=== PATIENT | female | born 1950 | race Caucasian/White ===

== ENCOUNTER 2017-07-21 20:46 | Emergency (ER) | payer MEDICARE ==
[~2017-07-21] VITALS: Ht 157.5 cm; Wt 65.0 kg
[~2017-07-21 20:46] MED LIST: AMLODIPINE5 MG PO; LOSARTAN POT50 MG PO; METOPROLOL SUCC50 MG PO; NORCO1 TA1 PO; PREVACID; ZETIA10 MG PO
[2017-07-21 21:34] LABS: HEMOGLOBIN 14.1 g/dl (12.0-16.0); IMMATURE GRANULOCYTES 0.6 % (0.0-1.0); MEAN CELL VOLUME 85.7 fL CALC (80.0-100.0); MEAN CORPUSCULAR HGB 28.8 pG CALC (26.0-32.0); MEAN CORPUSCULAR HGB CONC 33.6 g/L CALC (32.0-36.0); NEUT# 9.41 thou/uL (2.00-7.15); RED BLOOD COUNT 4.9 mill/uL (4.20-5.60); RED CELL DISTRI WIDTH 12.2 % (11.5-15.5)
[2017-07-21 21:46] LABS: ALBUMIN 4.6 g/dL (3.2-5.0); ALKALINE PHOSPHATASE 74 u/l (38-126); AMYLASE 95 u/l (30-110); ANION GAP 16 (6-22 (CALC)); BILIRUBIN, TOTAL 0.5 mg/dL (0.0-1.4); BUN 14 mg/dL (8-23); BUN/CREATININE RATIO 17 (12-20 (CALC)); CALCIUM 9.5 mg/dL (8.4-10.2); CARBON DIOXIDE 27 mmol/l (22-30); CHLORIDE 102 mmol/l (95-108); CREATININE 0.8 mg/dL (0.5-1.0); GFR > 60 ML/MIN (>=60 (CALC)); GFR FOR AFR.AMER. > 60 ML/MIN (>=60 (CALC)); GLUCOSE 118 mg/dL (82-115); LIPASE 131 u/l (23-300); POTASSIUM 3.7 mmol/l (3.5-5.1); SGOT/AST 21 u/l (9-36); SGPT/ALT 28 u/l (11-66); SODIUM 142 mmol/l (137-146); TOTAL PROTEIN 7.2 g/dL (6.3-8.2)
[2017-07-21] MEDS ORDERED: ZOFRAN ODT4 MG PO (23:06)
[2017-07-21] MEDS ORDERED: CIPROFLOXACN500 MG PO (23:06)
[2017-07-21] MEDS ORDERED: LORTAB 5/3255 MG PO (23:06)
[2017-07-21] MEDS ORDERED: TAMSULOSIN0.4 MG PO (23:06)
[2017-07-21 23:48] LABS: URINE BILIRUBIN - DIPSTICK NEGATIVE (NEGATIVE); URINE BLOOD DIPSTICK LARGE (NEGATIVE); URINE COLOR YELLOW; URINE GLUCOSE - DIPSTICK NEGATIVE (NEGATIVE); URINE KETONE NEGATIVE (NEGATIVE); URINE LEUK ESTERASE NEGATIVE (NEGATIVE); URINE NITRITE - DIPSTICK NEGATIVE (Negative); URINE PROTEIN - DIPSTICK NEGATIVE (NEG-TRACE); URINE UROBILINOGEN - DIPSTICK 0.2 E.U./dL (0.2)
[2017-07-21 23:49] LABS: URINE CLARITY CLEAR
[2017-07-21 23:56] LABS: URINE SQUAMOUS EPITHELIAL CELL FEW EPI/hpf (0-FEW)
[2017-07-22 00:31] VITALS: BP 120/63
== END 2017-07-22 00:32 | disposition home or self-care (01) ==
LOC: ED 20:46
PROVIDERS: Emergency Medicine
DX: N13.2 Hydronephrosis with renal and ureteral calculous obstruction (principal); Z87.442 Personal history of urinary calculi; I10 Essential (primary) hypertension; R11.2 Nausea with vomiting, unspecified; R10.9 Unspecified abdominal pain; R10.31 Right lower quadrant pain

== ENCOUNTER 2017-07-24 12:19 | Emergency (ER) | payer MEDICARE ==
[~2017-07-24] VITALS: Ht 157.5 cm; Wt 65.0 kg
[~2017-07-24 12:19] MED LIST changes: +CIPROFLOXACN500 MG PO; +LORTAB 5/3255 MG PO; +TAMSULOSIN0.4 MG PO; +ZOFRAN ODT4 MG PO
[2017-07-24] MEDS ORDERED: HYDROCORT0.51 EX (13:02)
[2017-07-24 13:10] VITALS: BP 137/69
== END 2017-07-24 13:13 | disposition home or self-care (01) ==
LOC: ED 12:19
DX: T78.49XA Other allergy, initial encounter (principal); Y92.230 Patient room in hospital as the place of occurrence of the external cause; L29.9 Pruritus, unspecified; L50.0 Allergic urticaria

== ENCOUNTER 2019-01-28 10:46 | Emergency (ER) | payer MEDICARE ==
[~2019-01-28] VITALS: Ht 157.5 cm; Wt 68.0 kg
[~2019-01-28 10:46] MED LIST changes: +HYDROCORT0.51 EX
[2019-01-28] MEDS ORDERED: ATENOLOL25 MG PO (10:57)
[2019-01-28 11:37] LABS: HEMATOCRIT 42.4 % (37.0-47.0); HEMOGLOBIN 14.3 g/dl (12.0-16.0); IMMATURE GRANULOCYTES 0.4 % (0.0-5.0); MEAN CELL VOLUME 84.3 fL CALC (80.0-100.0); MEAN CORPUSCULAR HGB 28.4 pG CALC (26.0-32.0); MEAN CORPUSCULAR HGB CONC 33.7 g/L CALC (32.0-36.0); NEUT# 3.38 thou/uL (2.00-7.15); RED BLOOD COUNT 5.03 mill/uL (4.20-5.60); RED CELL DISTRI WIDTH 12.3 % (11.5-15.5)
[2019-01-28 12:16] LABS: ALBUMIN 4.6 g/dL (3.2-5.0); ALKALINE PHOSPHATASE 79 u/l (38-126); AMYLASE 86 u/l (30-110); ANION GAP 14 (6-22 (CALC)); BUN 16 mg/dL (8-23); BUN/CREATININE RATIO 24 (12-20 (CALC)); CARBON DIOXIDE 26 mmol/l (22-30); CHLORIDE 106 mmol/l (95-108); CREATININE 0.7 mg/dL (0.5-1.0); GFR > 60 ML/MIN (>=60 (CALC)); GFR FOR AFR.AMER. > 60 ML/MIN (>=60 (CALC)); LIPASE 109 u/l (23-300); POTASSIUM 4.2 mmol/l (3.5-5.1); SGOT/AST 26 u/l (9-36); SODIUM 141 mmol/l (137-146); TOTAL PROTEIN 7.4 g/dL (6.3-8.2)
[2019-01-28 12:17] LABS: BILIRUBIN, TOTAL 0.5 mg/dL (0.0-1.4)
[2019-01-28 13:18] LABS: URINE BILIRUBIN - DIPSTICK NEGATIVE (NEGATIVE); URINE BLOOD DIPSTICK LARGE (NEGATIVE); URINE COLOR YELLOW; URINE GLUCOSE - DIPSTICK NEGATIVE (NEGATIVE); URINE KETONE NEGATIVE (NEGATIVE); URINE NITRITE - DIPSTICK NEGATIVE (Negative); URINE PH 7.5 (4.5-8.0); URINE PROTEIN - DIPSTICK NEGATIVE (NEG-TRACE); URINE UROBILINOGEN - DIPSTICK 0.2 E.U./dL (0.2)
[2019-01-28 13:24] LABS: URINE LEUK ESTERASE SMALL (NEGATIVE)
[2019-01-28 13:41] LABS: URINE RBC TNTC RBC/hpf (0-5); URINE SQUAMOUS EPITHELIAL CELL FEW EPI/hpf (0-FEW)
[2019-01-28] MEDS ORDERED: TAMSULOSIN0.4 MG PO (14:27)
[2019-01-28] MEDS ORDERED: KEFLEX500 M1 PO (14:27)
[2019-01-28] MEDS ORDERED: LORTAB 5/3255 MG PO (14:27)
[2019-01-28] MEDS ORDERED: ZOFRAN4 MG/TAB PO (14:27)
[2019-01-28 14:42] VITALS: BP 137/73
== END 2019-01-28 14:57 | disposition home or self-care (01) ==
LOC: ED 10:46
DX: N13.2 Hydronephrosis with renal and ureteral calculous obstruction (principal); I10 Essential (primary) hypertension

== ENCOUNTER 2021-03-31 06:46 | Day surgery (SDC) | payer MEDICARE, MEDICAID ==
[~2021-03-31] VITALS: Ht 154.9 cm; Wt 68.0 kg
[~2021-03-31 06:46] MED LIST changes: +ATENOLOL25 MG PO; +KEFLEX500 M1 PO; +MAGNESIUM500 M2 PO; +MYRBETRIQ50 MG PO; +SUPER BIOTIN5000 MC1 PO; +VITAMIN C500 M4 PO; +ZOFRAN4 MG/TAB PO
[2021-03-31 08:56] VITALS: BP 165/79
== END 2021-03-31 09:25 | disposition home or self-care (01) ==
LOC: ENDO 06:46 → ORM 08:00 → ENDO 08:00 → ORM 09:30
PROVIDERS: ATTEND Surgery
PROC: 0DJD8ZZ Inspection of Lower Intestinal Tract, Via Natural or Artificial Opening Endoscopic (ICD-10-PCS; principal; 2021-03-31)
PROC: 0DJ08ZZ Inspection of Upper Intestinal Tract, Via Natural or Artificial Opening Endoscopic (ICD-10-PCS; 2021-03-31)
DX: K57.30 Diverticulosis of large intestine without perforation or abscess without bleeding (principal); K64.8 Other hemorrhoids; K29.80 Duodenitis without bleeding; K44.9 Diaphragmatic hernia without obstruction or gangrene; I10 Essential (primary) hypertension; E78.5 Hyperlipidemia, unspecified; D17.1 Benign lipomatous neoplasm of skin and subcutaneous tissue of trunk; R22.31 Localized swelling, mass and lump, right upper limb

== ENCOUNTER 2022-01-22 10:30 | Day surgery (SDC) | payer MEDICARE, MEDICAID ==
[~2022-01-22] VITALS: Ht 154.9 cm; Wt 65.8 kg
[~2022-01-22 10:30] MED LIST changes: +CRESTOR5 M1; +LIPITOR10 M1 PO; +SOLIFENACIN SUCC5 MG
[2022-01-22 14:16] VITALS: BP 164/80
== END 2022-01-22 14:41 | disposition home or self-care (01) ==
LOC: ORM 10:30
PROVIDERS: ATTEND Urology
PROC: 0TF3XZZ Fragmentation in Right Kidney Pelvis, External Approach (ICD-10-PCS; principal; 2022-01-22)
PROC: 0T768DZ Dilation of Right Ureter with Intraluminal Device, Via Natural or Artificial Opening Endoscopic (ICD-10-PCS; 2022-01-22)
DX: N20.0 Calculus of kidney (principal); N32.81 Overactive bladder; I10 Essential (primary) hypertension; E78.5 Hyperlipidemia, unspecified; Z87.440 Personal history of urinary (tract) infections; Z87.442 Personal history of urinary calculi
CPT/HCPCS: J0131; J1956; Q9967

== ENCOUNTER 2023-04-28 12:28 | Observation (INO) | payer MEDICARE, MEDICAID ==
[~2023-04-28] VITALS: Ht 154.9 cm; Wt 71.2 kg
[2023-04-28] VITALS (11 sets, daily range): BP systolic 127–170; BP diastolic 59–81
--- NOTE | 2023-04-28 12:28 | NUR ---
PT WHEELED TO ROOM 15. FEELING GENREALIZED WEAKNESS AND FATIGUE.PT WAS ABLE TO STAND AND PIVOT TO THE BEDPT IS ALERT AND OX4
[2023-04-28 13:04] LABS: BASO% 0.4 % (0-3); EOS% 0.1 % (0-8); HEMATOCRIT 40.1 % (37.0-47.0); HEMOGLOBIN 13.7 g/dl (12.0-16.0); IMMATURE GRANULOCYTES 0.1 % (0.0-5.0); LYMPH% 13.6 % (15-41); MEAN CELL VOLUME 84.8 fL CALC (80.0-100.0); MEAN CORPUSCULAR HGB CONC 34.2 g/dL CAL (32.0-36.0); MONO% 9.1 % (2-13); NEUT# 5.67 thou/uL (2.00-7.15); NEUT% 76.7 % (42-76); RED BLOOD COUNT 4.73 mill/uL (4.20-5.60); RED CELL DISTRI WIDTH 12.1 % (11.5-15.5)
[2023-04-28 13:12] LABS: ALBUMIN 4.2 g/dL (3.2-5.0); ALKALINE PHOSPHATASE 88 u/l (38-126); BILIRUBIN, TOTAL 0.7 mg/dL (0.02-1.3); BUN 11 mg/dL (8-23); BUN/CREATININE RATIO 13 (12-20 (CALC)); CARBON DIOXIDE 26 mmol/l (22-30); CHLORIDE 97 mmol/l (95-108); CREATININE 0.9 mg/dL (0.5-1.0); GFR FOR AFR.AMER. > 60 ML/MIN (>=60 (CALC)); GFR OTHER RACES > 60 ML/MIN (>=60 (CALC)); POTASSIUM 4.1 mmol/l (3.5-5.1); TOTAL PROTEIN 7.3 g/dL (6.3-8.2)
[2023-04-28 13:25] LABS: ANION GAP 15 (6-22 (CALC)); SGOT/AST 45 u/l (9-36); SODIUM 134 mmol/l (137-146)
--- NOTE | 2023-04-28 13:30 | NUR ---
IN ROOM OBTAIN I/V, 18G LAC, VSS, MEDS ADMINISTERED PER ORDERS, FAMILY AT BEDSIDE, CALL LIGHT IN REACH. PT TAKEN TO CT/US.
[2023-04-28 14:52] LABS: URINE BILIRUBIN - DIPSTICK Negative (NEGATIVE); URINE BLOOD DIPSTICK Moderate (NEGATIVE); URINE COLOR Yellow; URINE GLUCOSE - DIPSTICK Negative (NEGATIVE); URINE KETONE Trace mg/dL (NEGATIVE); URINE LEUK ESTERASE Negative (NEGATIVE); URINE NITRITE - DIPSTICK Positive (Negative); URINE PROTEIN - DIPSTICK Negative (NEG-TRACE); URINE SPECIFIC GRAVITY <=1.005; URINE UROBILINOGEN - DIPSTICK 0.2 E.U./dL (0.2)
[2023-04-28 14:53] LABS: URINE BACTERIA MODERATE hpf
--- NOTE | 2023-04-28 15:00 | NUR ---
FAMILY MEMBER LEFT, VSS, CALL LIGHT IN REACH. NO COMPLAINTS AT THIS TIME.
--- NOTE | 2023-04-28 15:58 | NUR ---
REPORT CALLED TO ICU NURSE GISELA.
--- NOTE | 2023-04-28 16:10 | NUR ---
PT TO [facility] ROOM 260 VIA STRETCHER, MASK WORN, VSS, ALL BELONGINS SENT WITH PT, PT ON TELE # 1.
--- NOTE | 2023-04-28 17:05 | NUR ---
PT BROUGHT UP FROM ER VIA STR @5090 PT WAS ABLE TO TRANSFER SELF FROM STR INTO BED. PT IS COVID POSITIVE SO AIRBORN PRECAUTIONS PLACED AND PT EDUCATED ON THEM. PT IS ON RM AIR, A/OX3, SKIN IS INTACT. PT PLACED ON BRIEF PUT STATES THEY ARE CONTINENT BUT LEAKS OCCASIONALLY. EDUCATED PT ON PLAN OF CARE, MED SCHEDULE, DIET AND SAFETY PRECAUTIONS. IV SITE NOTED, APPEARS HEALTHY AND INTACT. PT BELONGINGS PLACED IN BAG AND PUT IN CLOSET IN RM. PT ON TELE MONITORING BOX #1. CALL LIGHT WITHIN REACH AND SAFETY PRECAUTIONS IN PLACE.
--- NOTE | 2023-04-28 21:18 | NUR ---
Pt requested Purewick.
[2023-04-29 00:03] VITALS: BP 165/74
--- NOTE | 2023-04-29 00:47 | NUR ---
PT REQUESTED COUGH MED AND LOZENGER WELL TYLENOL FOR COUGH/DISCOMFORT WITH GOOD EFECT. SLEEPING WELL. IV FLUIDS INFUSING ORDERED.
[2023-04-29 04:10] VITALS: BP 156/80
[2023-04-29 06:08] LABS: HEMATOCRIT 37.3 % (37.0-47.0); HEMOGLOBIN 12.7 g/dl (12.0-16.0); MEAN CELL VOLUME 86.3 fL CALC (80.0-100.0); MEAN CORPUSCULAR HGB 29.4 pG CALC (26.0-32.0); RED BLOOD COUNT 4.32 mill/uL (4.20-5.60); RED CELL DISTRI WIDTH 12.4 % (11.5-15.5)
[2023-04-29 06:29] LABS: ANION GAP 11 (6-22 (CALC)); BUN 8 mg/dL (8-23); BUN/CREATININE RATIO 12 (12-20 (CALC)); CALCULATED LDLCHOLESTEROL 115 mg/dL (62-129 (CALC)); CARBON DIOXIDE 26 mmol/l (22-30); CHLORIDE 104 mmol/l (95-108); CREATININE 0.7 mg/dL (0.5-1.0); GFR FOR AFR.AMER. > 60 ML/MIN (>=60 (CALC)); GFR OTHER RACES > 60 ML/MIN (>=60 (CALC)); HDL CHOLESTEROL 35 mg/dL (39.0-59.0); MAGNESIUM 1.9 mg/dL (1.6-2.3); POTASSIUM 3.6 mmol/l (3.5-5.1); SODIUM 137 mmol/l (137-146); TOTAL CHOLESTEROL 178 mg/dl (0-199); TOTAL TRIGLYCERIDES 135 mg/dl (0-149); VLDL CHOLESTROL 27 mg/dl (0-48 (CALC))
[2023-04-29 06:41] LABS: C-REACTIVE PROTEIN 14.9 mg/dL (0-0.9)
--- NOTE | 2023-04-29 07:00 | NUR ---
RECEIVED BEDSIDE REPORT FROM MYRON MAGALLON. PT RESTING IN BED WITH EYES CLOSED. ALL SAFETY MEASURES IN PLACE. VSS. NO NEEDS AT THIS TIME.
[2023-04-29 12:07] VITALS: BP 166/71
[2023-04-29 23:56] VITALS: BP 165/80
[2023-04-30] VITALS (7 sets, daily range): BP systolic 136–189; BP diastolic 56–85
--- NOTE | 2023-04-30 07:41 | NUR ---
RECEIVED BEDSIDE REPORT FROM MARY BISHOP. PT LYING IN BED WITH EYES CLOSED. ALL SAFETY MEASURES IN PLACE. VSS. NO NEEDS AT THIS TIME.
[2023-04-30] MEDS ORDERED: OMNICEF300 MG PO (18:04)
--- NOTE | 2023-04-30 21:46 | NUR ---
RECEIVED BEDSIDE SHIFT REPORT AT START OF SHIFT. PT IS BEING DISCHARGED TO HOME. ALL DISCHARGE INSTRUCTIONS DISCUSSED WITH PT WITH GOOD UNDERSTANDING.BROUGHT TO ED LOBBY VIA WC . SON IS BRINGING PT HOME.
== END 2023-04-30 20:00 | disposition home or self-care (01) ==
LOC: ED 12:28 → ED-I 13:04 → ED 13:04 → ED-I 15:20 → ED 15:33 → MS2 15:34 → ICU 15:34 → MS2 16:04
PROVIDERS: Nurse Practitioner; ADMIT Student in an Organized Health Care Education/Training Program; ATTEND Student in an Organized Health Care Education/Training Program
DX: U07.1 COVID-19 (principal); N39.0 Urinary tract infection, site not specified; B96.1 Klebsiella pneumoniae [K. pneumoniae] as the cause of diseases classified elsewhere; E86.0 Dehydration; I10 Essential (primary) hypertension; E78.5 Hyperlipidemia, unspecified
CPT/HCPCS: J1650; Q9967

== ENCOUNTER 2024-10-31 08:40 | Emergency (ER) | payer MEDICARE, MEDICAID ==
[~2024-10-31] VITALS: Ht 154.9 cm; Wt 70.0 kg
[2024-10-31] VITALS (8 sets, daily range): BP systolic 142–172; BP diastolic 69–83
[~2024-10-31 08:40] MED LIST changes: +OMNICEF300 MG PO
== END 2024-10-31 11:10 | disposition home or self-care (01) ==
LOC: ED 08:40
DX: T54.91XA Toxic effect of unspecified corrosive substance, accidental (unintentional), initial encounter (principal); R05.9 Cough, unspecified; R51.9 Headache, unspecified; I10 Essential (primary) hypertension; E78.5 Hyperlipidemia, unspecified; Y92.028 Other place in mobile home as the place of occurrence of the external cause